=== PATIENT | female | born 1995 ===

== ENCOUNTER 2021-02-16 08:39 | Inpatient (IN) | payer SELFPAY ==
[~2021-02-16] VITALS: Ht 162.6 cm; Wt 75.2 kg
[2021-02-16] VITALS (8 sets, daily range): BP systolic 109–131; BP diastolic 66–80
[2021-02-16] MEDS ORDERED: IV NORMAL SALINE 1,000ML 1,000 ML IV ONE ×2 (09:15→09:30)
--- NOTE | 2021-02-16 09:19 | PHYS DOC ---
Past History Past Medical History: Diabetes (type 1 dm) Additional Past Medical Histor: retinopathy Past Surgical History: Alcohol Use: None Adult General Chief Complaint Chief Complaint: HYPERGLYCEMIA HPI HPI Patient is a 25-year-old female who presents for nausea and vomit. Patient is a known type I diabetic, was diagnosed at 10 years old so 15 years ago. She lives in [place] in [place] but unfortunately since she has [facility] is unable to have a continuous glucose monitor and or insulin pump. She utilizes subcutaneous insulin daily. Reports that her blood sugar is typically always uncontrolled, last hemoglobin A1c was, "high, but it has been better... I've been trying to do better for my kids". She left her home for our region to visit family members 48 hours ago and forgot all insulin products. She reports being asymptomatic despite no insulin during her weekend trip but woke up this morning at 0200 hrs. with nausea and vomiting. Reports x3 episodes of nonbloody nonbilious emesis since that time with ongoing nausea and generalized abdominal pain. She feels dehydrated and feels she might be back in DKA. States this has not happened to her in "a while", last time she was hospitalized for her hyperglycemia was "years ago". Denies any recent illness, medication changes, no other medical history, no other medication use Review of Systems Review of Systems Fourteen body systems of review of systems have been reviewed. See HPI for pertinent positives and negative responses, other oconnor all other systems are negative, non-pertinent or non-contributory Allergies Allergies Allergies Uncoded Allergies Type Severity Reaction Last Updated Verified BEE VENOM Allergy Unknown 02/16/21 Physical Exam Physical Exam Constitutional: Well developed, well nourished, no acute distress, non-toxic appearance. HENT: Normocephalic, atraumatic, bilateral external ears normal, oropharynx dry, no oral exudates, nose normal. Eyes: PERRLA, EOMI, conjunctiva normal, no discharge. Neck: Normal range of motion, no tenderness, supple, no stridor. Cardiovascular: Tachycardic, sinus rhythm, no murmurs rubs or gallops Lungs & Thorax: Bilateral breath sounds clear to auscultation Abdomen: Bowel sounds normal, soft, no tenderness, no masses, no pulsatile masses. Nonsurgical abdomen, no peritoneal signs Skin: Warm, dry, no erythema, no rash. Back: No tenderness, no CVA tenderness. Extremities: No tenderness, no cyanosis, no clubbing, ROM intact, no edema. Neurologic: Alert and oriented X 3, grossly normal motor & sensory function, no focal deficits noted. Psychologic: Affect normal, judgement normal, mood normal. Current Patient Data Vital Signs Vital Signs Date Time Temp Pulse Resp B/P (MAP) Pulse Ox O2 Delivery O2 Flow Rate FiO2 02/16/21 08:40 97.4 128 28 149/97 (114) 99 EKG EKG EKG ordered and interpreted by myself's 0854 hrs. as sinus rhythm at 132 bpm, unremarkable intervals, no axis deviation, no acute ischemic findings, no STEMI Radiology/Procedures Radiology/Procedures [] Heart Score C/O Chest Pain: No HEART Score for Chest Pain: HEART Score for Chest Pain Response (Comments) Value History Slighlty/Non-Suspicious 0 ECG Normal 0 Age < 45 0 Risk Factors 1 or 2 Risk Factors 1 Total 1 Risk Factors: Risk Factors: DM, Current or recent (<one month) smoker, HTN, HLP, family history of CAD, obesity. Risk Scores: Risk Factors: DM, Current or recent (<one month) smoker, HTN, HLP, family history of CAD, obesity. Course & Med Decision Making Course & Med Decision Making Tachycardic patient who is otherwise hemodynamically stable with history concerning for potential DKA and known type I diabetic. Physical exam grossly nonconcerning. Diagnostic ER work-up performed during consistent with DKA IV fluid rehydration started. Patient administered family members insulin, a total of 10 units prior to arrival. After POC recheck, 1mg/kg bolus and subsequent insulin drip started with continued IV fluid rehydration I discussed severity of presenting symptoms and diagnosis at length and need for hospital admission to ICU. I discussed case with Dr. Will, hospitalist at [facility] he agreed need for admission and accepted patient under his care I updated patient and mother at bedside on plan of care that included hospital admission for continued management of patient's DKA, they were both amenable. All questions and concerns addressed prior to ER transport to [facility] for admission Critical Care Time This patient required critical care. Due to the fact that the patient required a significant amount of one on one physician - patient contact time, ordering and review of studies, arranging urgent treatment with development of a management plan, evaluation of patients response to treatment with frequent reassessments, and discussions with other providers this patient required 50 minutes of critical care time. Critical care time was indicated due to the inherent instability and/or potential for instability in this patient. The critical care time that is allocated to this patient is above and beyond any time spent on any other billable procedures performed on this patient. Dragon Disclaimer Dragon Disclaimer This electronic medical record was generated, in whole or in part, using a voice recognition dictation system. Departure Departure: Impression: Primary Impression: DKA (diabetic ketoacidosis) Additional Impressions: Type 1 diabetes mellitus High anion gap metabolic acidosis Disposition: ADMITTED INPT THIS HOSP Admitting Physician: Ryan Will Condition: STABLE Referrals: PCP,NO (PCP) Problem Qualifiers ISH PHILLIPS DO Feb 16, 2021 09:19
[2021-02-16 09:39] LABS: BASO # 0.1 x10^3/uL (0.0-0.2); BASO % 1 % (0-3); EOS % 0 % (0-3); HEMATOCRIT 44.7 % (36.0-47.0); HEMOGLOBIN 13.5 g/dL (12.0-15.5); LYMPH # 2.7 x10^3/uL (1.0-4.8); LYMPH % 21 % (24-48); MEAN CORPUSCULAR HEMOGLOBIN 29 pg (25-35); MEAN CORPUSCULAR HGB CONC 30 g/dL (31-37); MEAN CORPUSCULAR VOLUME 97 fL (79-100); MONO # 0.4 x10^3/uL (0.0-1.1); MONO % 3 % (0-9); NEUT # 9.8 x10^3uL (1.8-7.7); NEUT % 76 % (31-73); PLATELET COUNT 552 x10^3/uL (140-400); RED BLOOD COUNT 4.63 x10^6/uL (3.50-5.40); RED CELL DISTRIBUTION WIDTH 15.9 % (11.5-14.5); WHITE BLOOD COUNT 12.9 x10^3/uL (4.0-11.0)
[2021-02-16 09:47] LABS: CALCIUM 9.6 mg/dL (8.5-10.1); CREATININE 1.4 mg/dL (0.6-1.0); GFR 45.8; POTASSIUM 4.6 mmol/L (3.5-5.1)
--- NOTE | 2021-02-16 10:08 | EKG ---
[address] [address] Test Date: 2021-02-16 Test Time: 08:44:08 Pat Name: CHERIE ALARCON Department: Room: Gender: F Oiler Bander: : 1995 Requested By: ISH PHILLIPS Order Number: [id number] Reading MD: Measurements Intervals [place] Rate: 132 P: 64 [place]: 142 QRS: 64 QRSD: 88 T: 66 QT: 290 QTc: 433 Interpretive Statements SINUS TACHYCARDIA RIGHT ATRIAL ENLARGEMENT POSSIBLY ABNORMAL ECG RI6.02 No previous ECG available for comparison
[2021-02-16] MEDS ORDERED: INSULIN REGULAR 100 UNIT/ML 3ML VIAL. IV ONE (10:30)
[2021-02-16] MEDS ORDERED: DEXTROSE 50% 25 GM / 50ML DISP.SYRIN. IV PRN ×2 (10:45→19:15)
[2021-02-16] MEDS ORDERED: POTASSIUM CL 20MEQ D5-0.45NACL 1,000 ML IV ONE (10:45)
[2021-02-16] MEDS ORDERED: ONDANSETRON PF 4 MG/2 ML VIAL. IVP PRN (10:45)
[2021-02-16] MEDS ORDERED: SODIUM BICARB ADULT 8.4% 50 MEQ/50 ML DISP.SYRIN. IV ONE (10:45)
[2021-02-16] MEDS: INSULIN REGULAR VIAL 100 UNIT in IV NORMAL SALINE 100ML 100 ML IV PRN ×2 (11:18→12:44)
[2021-02-16 12:08] LABS: BACTERIA,URINE 0 /HPF (0-FEW); BILIRUBIN,URINE NEG (NEG); CLARITY,URINE HAZY; COLOR,URINE YELLOW; GLUCOSE,URINE 500 mg/dL (NEG); NITRITE,URINE NEG (NEG); RBC,URINE 20-40 /HPF (0-2); SQUAMOUS EPITHELIAL CELL,UR FEW /LPF; UROBILINOGEN,URINE 0.2 mg/dL (0.2 mg/dL); WBC,URINE 0 /HPF (0-4); YEAST,URINE PRESENT /HPF
[2021-02-16] MEDS ORDERED: MAGNESIUM SULFATE 2GM 50 ML IV PRN (12:45)
[2021-02-16] MEDS ORDERED: IV DEXTROSE 5 %-0.45 % NACL 1,000 ML IV SCH (12:45)
[2021-02-16] MEDS ORDERED: IV NORMAL SALINE 1,000ML 1,000 ML IV SCH (12:45)
[2021-02-16] MEDS ORDERED: INSULIN REGULAR VIAL 100 UNIT in IV NORMAL SALINE 100ML 100 ML IV PRN (12:45)
[2021-02-16] MEDS ORDERED: POTASSIUM CHLORIDE 10MEQ 100 ML IV PRN ×5 (12:45)
--- NOTE | 2021-02-16 12:52 | NUR ---
Patient admitted to ICU room 3 from ER with DKA. Patient brought to unit accompanied by EMS and STORE MANAGEMENT TRAIN[employer]. Patient arrived on Insulin drip and IV Fluids. Patient stable upon arrival, vital signs taken, unit policies and procedures discussed. Plan of care discussed with patient and agreed to. Will continue to critically monitor.
--- NOTE | 2021-02-16 13:03 | HP ---
ADMIT DATE: 02/16/2021 ATTENDING PHYSICIAN: Dr. Lazo. CHIEF COMPLAINT: Nausea and vomiting. HISTORY OF PRESENT ILLNESS: The patient is a 25-year-old female visiting from [place]. She was attending a family wedding. She has been a type 1 diabetic. She has a continuous glucose monitor, but is unable to get insulin pump. She utilizes subcutaneous insulin, but she ran out over the weekend. The last hemoglobin A1c was high, compliance is an issue. Her blood sugar was 787 mg/dL. She is having symptoms of nausea and vomiting. She was fairly alert. She has had previous DKA, but has not happened in several years. She has had previous hospitalizations. Her bicarbonate level was 7. She was given fluids, insulin and bicarbonate in the ED. PAST MEDICAL HISTORY: Significant for type 1 diabetes. She has diabetic retinopathy. She has had two C-sections. She also has chronic migraine headaches and clinical depression. ALLERGIES: SHE HAS ALLERGIES TO BEE VENOM. CURRENT MEDICATIONS: Include Cymbalta 30 mg daily and p.r.n. Imitrex. SOCIAL HISTORY: She is a nonsmoker. She drinks occasionally. No significant use. FAMILY HISTORY: Parents are still healthy. She has 1 sister who is healthy. Parents are in their late 40s. She has had diabetes since age 10. She is a type 1. REVIEW OF SYSTEMS: She unfortunately has been followed at [facility] and they were unable to provide for her adequate equipment or insulin pump. No recent COVID exposure. All other systems reviewed and turned to be negative. PHYSICAL EXAMINATION: GENERAL: When I saw her, this is a pleasant young female. INITIAL VITAL SIGNS: Showed blood pressure 149/97, pulse is 120 and regular, temperature 97.4 degrees Fahrenheit, oxygen saturation 99%. HEENT: Head is without trauma. Pupils are reactive. Sclerae nonicteric. Oropharynx clear. NECK: Supple, no bruits. LUNGS: Clear. CARDIOVASCULAR: Showed regular heart tones. Bowel sounds were hypoactive. EXTREMITIES: Showed no cyanosis or edema. NEUROLOGIC: Focally intact. Speech is fluent. SKIN: Warm and dry. LABORATORY DATA: Admission hemoglobin was 13.5 g/dL in a hemoconcentrated state, white count 12,900. Blood sugar 747 on admission, repeated was down to 561 mg/dL, potassium 4.6 mEq. The CO2 is 7 and the anion gap is 33. ASSESSMENT: 1. A 25-year-old female, type 1 diabetic with diabetic ketoacidosis. 2. Noncompliance of meds. She ran out of insulin and even prior to that, she has not been taking her insulin on a regular basis. 3. History of diabetic retinopathy. 4. Mild dehydration. PLAN: 1. Admit to the inpatient unit. 2. Glucose stabilizer protocol. 3. Noncaloric intake. 4. Serial glucose ____ sugars come down. 5. We will restart her Lantus and regular schedule when she is stable. 6. IV hydration. 7. Bicarbonate. 8. Followup chemistries in the morning. KASSIDY LAZO MD DR: AREN/josh JOB#: [id number] / [id number]
[2021-02-16 13:37] LABS: CALCIUM 8.3 mg/dL (8.5-10.1); GFR 67.6; POTASSIUM 3.9 mmol/L (3.5-5.1)
[2021-02-16] MEDS ORDERED: POTASSIUM CHLORIDE 10 MEQ TABLET.ER. PO ONE (13:45)
[2021-02-16 13:48] LABS: PHOSPHORUS 1.3 mg/dL (2.6-4.7)
[2021-02-16] MEDS ORDERED: DULO30CA2 PO (13:51)
[2021-02-16] MEDS ORDERED: SUMA50TA3 PO (13:51)
[2021-02-16] MEDS ORDERED: NPH,100V5 SQ (13:51)
[2021-02-16] MEDS ORDERED: INSU100V31 SQ (13:51)
[2021-02-16 18:37] LABS: CALCIUM 8.1 mg/dL (8.5-10.1); CREATININE 0.8 mg/dL (0.6-1.0); GFR 87.4
[2021-02-16] MEDS ORDERED: ACETAMINOPHEN 500 MG TABLET PO PRN (18:45)
[2021-02-16] MEDS: IV NORMAL SALINE 1,000ML 1,000 ML IV SCH (19:23)
[2021-02-16] MEDS: INSULIN LISPRO 300 UNITS/3 ML VIAL. SQ SCH ×2 (20:49→23:55)
[2021-02-17] VITALS (12 sets, daily range): BP systolic 99–124; BP diastolic 64–81
[2021-02-17] MEDS: INSULIN LISPRO 300 UNITS/3 ML VIAL. SQ SCH ×3 (04:09→12:00)
[2021-02-17] MEDS: IV NORMAL SALINE 1,000ML 1,000 ML IV SCH (04:09)
[2021-02-17 06:04] LABS: CALCIUM 8.2 mg/dL (8.5-10.1); CREATININE 1.2 mg/dL (0.6-1.0); GFR 54.7; POTASSIUM 3.1 mmol/L (3.5-5.1)
[2021-02-17] MEDS ORDERED: SODIUM BICARB ADULT 8.4% 50 MEQ/50 ML DISP.SYRIN. IV ONE (06:30)
[2021-02-17] MEDS ORDERED: INSULIN GLARGINE SYRINGE. SQ ONE (06:45)
[2021-02-17] MEDS ORDERED: POTASSIUM CHLORIDE 20 MEQ TABLET.ER. PO ONE (06:45)
--- NOTE | 2021-02-17 11:08 | DS ---
DATE OF DISCHARGE: 02/17/2021 ATTENDING PHYSICIAN: Dr. Lazo. FINAL DISCHARGE DIAGNOSES: 1. Diabetic ketoacidosis, resolved. 2. Type 1 diabetes mellitus. 3. Mild dehydration. 4. History of diabetic retinopathy. HISTORY AND PHYSICAL: The patient is a 25-year-old female visiting from [place]. She was at a wedding. She ran out of her insulin. She had nausea and vomiting, elevated blood sugar is 747. She was admitted for further treatment and evaluation. She had a significant anion gap. PHYSICAL EXAMINATION: Please see my dictated note. PERTINENT LABORATORY AND X-RAY STUDIES: She was admitted. Subsequent chemistries showed an improvement. Her potassium will be followed up and replaced. Her sugars were down to the 400, 200 and then down to 198. Her anion gap was improved. By the second hospital day, her blood pressure and vital signs are stable. Her lungs were clear. She had no further issues. She was eating well. At this time, she is ready for discharge. I did recommend to her that she should take a shot of regular insulin 3 times a day before each meal based on the sliding scale that she already has and a dose of approximately 20 units of Lantus insulin at bedtime. She will follow up with her regular physician. She has enough insulin at home. She understands her instructions. The patient was then discharged from our hospital in stable condition with explicit instructions and followup care. I told her to have followup visit and recheck lab work upon her return to [place]. She was discharged in stable condition with explicit instructions and followup care. KASSIDY LAZO MD DR: AREN/josh JOB#: [id number] / [id number]
--- NOTE | 2021-02-17 12:35 | NUR ---
Patient was discharged to home per Dr. Will. All IV's and monitors were removed. Discharge paperwork was reviewed with the patient. Patient verbalized understanding of discharge paperwork. Patient left the unit via ambulation escorted by this RN where family members were waiting to transport her home.
[2021-02-17] MEDS ORDERED: POTASSIUM CHLORIDE 20 MEQ TABLET.ER. PO SCH (17:00)
== END 2021-02-17 12:45 | disposition home or self-care (01) | DRG 639 ==
LOC: ER 08:39 → ICU 10:46
PROVIDERS: ADMIT Hospitalist; ATTEND Hospitalist
DX: E10.10 Type 1 diabetes mellitus with ketoacidosis without coma (principal); G43.909 Migraine, unspecified, not intractable, without status migrainosus; E10.319 Type 1 diabetes mellitus with unspecified diabetic retinopathy without macular edema; E86.0 Dehydration; F32.9 Major depressive disorder, single episode, unspecified; Z79.4 Long term (current) use of insulin; Z83.3 Family history of diabetes mellitus; Z91.14 Patient's other noncompliance with medication regimen
CPT/HCPCS: 36415; 80048; 81001; 82010; 82803; 82947; 83735; 84100; 85025; 93005; 96361; 96365; 96375; 99291; J1815; J2405; J3480; J7030